=== PATIENT | female | born 1985 | race Caucasian/White ===

== ENCOUNTER 2017-08-05 16:33 | Emergency (ER) | payer OTHER ==
[2017-08-05 17:13] VITALS: BP 116/76
[2017-08-05 18:07] LABS: Bacteria,Urine 4+ /HPF (Negative); Bilirubin,Urine NEG (Negative); Blood,Urine LG (Negative); Color,Urine Straw (Yellow); Nitrite,Urine NEG (Negative); Protein,Urine <15 mg/dL mg/dL (Negative); Urobilinogen,Urine < 2.0 mg/dL (<2.0)
[2017-08-05 18:48] LABS: Basophils % (Auto) 0.2 % (0.0-1.8); Eosinophils % (Auto) 0.5 % (0.0-4.3); Hematocrit 39.6 % (30.3-42.9); Hemoglobin 13.3 gm/dl (10.1-14.3); Lymphocytes # (Auto) 2.4 K/mm3 (1.2-5.4); Lymphocytes % (Auto) 36.1 % (13.4-35.0); Mean Corpuscular HGB Conc 34 % (30-34); Mean Corpuscular Hemoglobin 30 pg (28-32); Mean Corpuscular Volume 90 fl (79-97); Monocytes # (Auto) 0.5 K/mm3 (0.0-0.8); Monocytes % (Auto) 7.5 % (0.0-7.3); Platelet Count 234 K/mm3 (140-440); Red Blood Count 4.39 M/mm3 (3.65-5.03)
--- NOTE | 2017-08-05 19:33 | Ultrasound Report ---
FINAL REPORT EXAM: US OB < = 14 WEEKS FETUS HISTORY: vaginal bleeding during . LMP 06/11/2017 with estimated age 7 weeks 4 days and EDC 03/20/2018 TECHNIQUE: Ultrasound of the pelvis using transabdominal and transvaginal imaging PRIORS: None. FINDINGS: Uterus: Uterus is enlarged in size and normal and homogeneous in echogenicity without focal fibroid formation. The uterus measures 10.2 x 4.8 x 8.0 cm in size. There is a single early viable intrauterine gestation noted. Intrauterine gestation: There is a single intrauterine gestation identified with both a pole and yolk sac. heart rate is monitored at 156 BPM using M-mode doppler. [place]-rump length measurement of 1.3 cm corresponds to estimated age 7 weeks 4 days with EDC 03/20/2018. There is a tiny adjacent subchorionic hemorrhage identified. Ovaries: Both ovaries appear normal in size and echogenicity with normal blood flow bilaterally. The right ovary measures 2.3 x 1.8 x 1.5 cm and the left ovary measures 2.7 x 2.3 x 1.5 cm in size. Other: There is no evidence for solid adnexal mass is seen. There is no free fluid in the cul-de-sac. IMPRESSION: Single intrauterine viable with an approximate age of 7 weeks 4 days.
--- NOTE | 2017-08-05 19:37 | Ultrasound Report ---
FINAL REPORT EXAM: US OB TRANSVAGINAL HISTORY: vaginal bleeding during . LMP 06/11/2017 with estimated age 7 weeks 4 days and EDC 03/20/2018 TECHNIQUE: Ultrasound of the pelvis using transabdominal and transvaginal imaging PRIORS: None. FINDINGS: Uterus: Uterus is enlarged in size and normal and homogeneous in echogenicity without focal fibroid formation. The uterus measures 10.2 x 4.8 x 8.0 cm in size. There is a single early viable intrauterine gestation noted. Intrauterine gestation: There is a single intrauterine gestation identified with both a pole and yolk sac. heart rate is monitored at 156 BPM using M-mode doppler. [place]-rump length measurement of 1.3 cm corresponds to estimated age 7 weeks 4 days with EDC 03/20/2018. There is a tiny adjacent subchorionic hemorrhage identified. Ovaries: Both ovaries appear normal in size and echogenicity with normal blood flow bilaterally. The right ovary measures 2.3 x 1.8 x 1.5 cm and the left ovary measures 2.7 x 2.3 x 1.5 cm in size. Other: There is no evidence for solid adnexal mass is seen. There is no free fluid in the cul-de-sac. IMPRESSION: Single intrauterine viable with an approximate age of 7 weeks 4 days. Tiny adjacent subchorionic hemorrhage.
--- NOTE | 2017-08-05 20:14 | Emergency Department Report ---
ED Female HPI - General Chief complaint: Vaginal Bleeding Stated complaint: 8 WKS PRG, BLEEDING Time Seen by Provider: 08/05/17 19:59 Source: patient, family Mode of arrival: Ambulatory Limitations: No Limitations - History of Present Illness Initial comments: Via conference interpreter service Patient here reports vaginal bleeding approximately 2 hours ago. She says she passed a clot the size of a grapefruit. She said she called her [facility]OX [facility]ER with a light cycle and is centered to emergency room. Denies any abdominal pain or back pain. Denies any nausea or vomiting. Denies any urinary burning frequency or urgency. Denies any fever or chills. Pain 0/10. Denies any medical problems MD Complaint: vaginal bleeding -: This evening Severity: moderate Are you Now?: Yes (7 weeks) Last Menstrual Period: 06/13/17 EDC: 03/20/18 Associated Symptoms: vaginal bleeding. denies: vaginal discharge, abdominal pain, nausea/vomiting, fever/chills, headaches, loss of appetite, dysuria, hematuria, rash, shortness of breath, syncope, weakness - Related Data Sexually active: Yes Previous Rx's Medication Instructions Recorded Last Taken Type Nitrofurantoin Monohyd/M-Cryst 100 mg PO Q12H 7 Days #14 capsule 08/05/17 Unknown Rx [Macrobid 100 mg Capsule] Allergies Allergy/AdvReac Type Severity Reaction Status Date / Time No Known Allergies Allergy Verified 08/05/17 17:09 ED Review of Systems ROS: Stated complaint: 8 WKS PRG, BLEEDING Other details as noted in HPI Comment: All other systems reviewed and negative Constitutional: no symptoms reported ENT: denies: throat pain Respiratory: no symptoms reported Cardiovascular: denies: chest pain, palpitations, dyspnea on exertion, edema, syncope, paroxysmal nocturnal dyspnea Gastrointestinal: abdominal pain. denies: nausea, vomiting, diarrhea, constipation, hematemesis, melena, hematochezia Genitourinary: denies: urgency, dysuria, frequency, hematuria, discharge, abnormal menses, dyspareunia Skin: denies: rash Neurological: denies: headache, numbness, abnormal gait ED Past Medical Hx - Past Medical History Previous Medical History?: No - Surgical History Past Surgical History?: No - Family History Family history: no significant - Social History Smoking Status: Never Smoker Substance Use Type: None - Medications Home Medications: Home Medications Medication Instructions Recorded Confirmed Last Taken Type Nitrofurantoin Monohyd/M-Cryst 100 mg PO Q12H 7 Days #14 capsule 08/05/17 Unknown Rx [Macrobid 100 mg Capsule] ED Physical Exam - General Limitations: No Limitations General appearance: alert, in no apparent distress - Head Head exam: Present: atraumatic, normocephalic, normal inspection - Eye Eye exam: Present: normal appearance, PERRL, EOMI Pupils: Present: normal accommodation - ENT ENT exam: Present: normal exam, normal orophraynx, mucous membranes moist - Neck Neck exam: Present: normal inspection, tenderness, full ROM. Absent: meningismus, lymphadenopathy, thyromegaly - Respiratory Respiratory exam: Present: normal lung sounds bilaterally. Absent: respiratory distress, chest wall tenderness - Cardiovascular Cardiovascular Exam: Present: regular rate, normal rhythm, normal heart sounds. Absent: systolic murmur, diastolic murmur - GI/Abdominal GI/Abdominal exam: Present: soft, normal bowel sounds. Absent: distended, tenderness, guarding, rebound, rigid, organomegaly, mass, bruit, pulsatile mass - External exam: Absent: normal external exam, erythema, swelling, lesions, lacerations, ecchymosis, bleeding Speculum exam: Present: vaginal bleeding. Absent: normal speculum exam, erythema, vaginal discharge, cervical discharge, foreign body, tissue, laceration Bi-manual exam: Absent: normal bi-manual exam, cervical motion tendernes, adnexal tenderness, adnexal mass, uterine enlargement, uterine tenderness - Expanded Exam Expanded Female exam: Absent: vaginal laceration, tissue present in vagina, herpetic lesions, vulvar erythema, vulvar tenderness, foreign body External exam: Present: normal Amniotic fluid: Present: none Speculum exam: Present: cervical OS closed, vaginal bleeding - Extremities Exam Extremities exam: Present: normal inspection, full ROM, normal capillary refill , other (no clubbing, cyanosis or edema. Positive pulses all extremities. No neurovascular compromise.). Absent: tenderness, pedal edema, joint swelling, calf tenderness - Back Exam Back exam: Present: normal inspection, full ROM. Absent: tenderness, CVA tenderness (R), CVA tenderness (L), muscle spasm, paraspinal tenderness, vertebral tenderness, rash noted - Neurological Exam Neurological exam: Present: alert, oriented X3, normal gait, reflexes normal. Absent: motor sensory deficit - Psychiatric Psychiatric exam: Present: normal affect, normal mood - Skin Skin exam: Present: warm, dry, intact, normal color. Absent: rash ED Course Vital Signs 08/05/17 17:09 Temperature 98.6 F Pulse Rate 86 Respiratory 18 Rate Blood Pressure 116/76 O2 Sat by Pulse 100 Oximetry - Reevaluation(s) Reevaluation #1: 08/05/17 21:06 Patient stable throughout ED course. ED Medical Decision Making - Lab Data Result diagrams: 08/05/17 17:20 Lab Results 08/05/17 08/05/17 08/05/17 Range/Units 17:20 17:20 17:20 WBC 6.7 (4.5-11.0) K/mm3 RBC 4.39 (3.65-5.03) M/mm3 Hgb 13.3 (10.1-14.3) gm/dl Hct 39.6 (30.3-42.9) % MCV 90 (79-97) fl MCH 30 (28-32) pg MCHC 34 (30-34) % RDW 13.0 L (13.2-15.2) % Plt Count 234 (140-440) K/mm3 Lymph % (Auto) 36.1 H (13.4-35.0) % [place] % (Auto) 7.5 H (0.0-7.3) % Eos % (Auto) 0.5 (0.0-4.3) % Baso % (Auto) 0.2 (0.0-1.8) % Lymph # 2.4 (1.2-5.4) K/mm3 [place] # 0.5 (0.0-0.8) K/mm3 Eos # 0.0 (0.0-0.4) K/mm3 Baso # 0.0 (0.0-0.1) K/mm3 Seg Neutrophils % 55.7 (40.0-70.0) % Seg Neutrophils # 3.7 (1.8-7.7) K/mm3 HCG, Qual Positive (Negative) HCG, Quant 68216 H (0-4) mIU/mL Urine Color (Yellow) Urine Turbidity (Clear) Urine pH (5.0-7.0) Ur Specific [place] (1.003-1.030) Urine Protein (Negative) mg/dL Urine Glucose (UA) (Negative) mg/dL Urine Ketones (Negative) mg/dL Urine Blood (Negative) Urine Nitrite (Negative) Ur Reducing Substances Urine Bilirubin (Negative) Urine Ictotest Urine Urobilinogen (<2.0) mg/dL Ur Leukocyte Esterase (Negative) Urine WBC (Auto) (0.0-6.0) /HPF Urine RBC (Auto) (0.0-6.0) /HPF U Epithel Cells (Auto) (0-13.0) /HPF Urine Bacteria (Auto) (Negative) /HPF Blood Type Antibody Screen 08/05/17 08/05/17 Range/Units 17:31 17:45 WBC (4.5-11.0) K/mm3 RBC (3.65-5.03) M/mm3 Hgb (10.1-14.3) gm/dl Hct (30.3-42.9) % MCV (79-97) fl MCH (28-32) pg MCHC (30-34) % RDW (13.2-15.2) % Plt Count (140-440) K/mm3 Lymph % (Auto) (13.4-35.0) % [place] % (Auto) (0.0-7.3) % Eos % (Auto) (0.0-4.3) % Baso % (Auto) (0.0-1.8) % Lymph # (1.2-5.4) K/mm3 [place] # (0.0-0.8) K/mm3 Eos # (0.0-0.4) K/mm3 Baso # (0.0-0.1) K/mm3 Seg Neutrophils % (40.0-70.0) % Seg Neutrophils # (1.8-7.7) K/mm3 HCG, Qual (Negative) HCG, Quant (0-4) mIU/mL Urine Color Straw (Yellow) Urine Turbidity Slightly-cloudy (Clear) Urine pH 7.0 (5.0-7.0) Ur Specific [place] 1.004 (1.003-1.030) Urine Protein <15 mg/dl (Negative) mg/dL Urine Glucose (UA) Neg (Negative) mg/dL Urine Ketones Neg (Negative) mg/dL Urine Blood Lg (Negative) Urine Nitrite Neg (Negative) Ur Reducing Substances Not Reportable Urine Bilirubin Neg (Negative) Urine Ictotest Not Reportable Urine Urobilinogen < 2.0 (<2.0) mg/dL Ur Leukocyte Esterase Mod (Negative) Urine WBC (Auto) 20.0 H (0.0-6.0) /HPF Urine RBC (Auto) 3.0 (0.0-6.0) /HPF U Epithel Cells (Auto) 3.0 (0-13.0) /HPF Urine Bacteria (Auto) 4+ (Negative) /HPF Blood Type A POSITIVE Antibody Screen Negative Urine culture sent - Radiology Data Radiology results: report reviewed Ultrasound OB transvaginal and abdomen and pelvis with single intrauterine viable regnancy with an approximate age of 7 weeks and 4 days. Tiny adjacent subchorionic hemorrhage. There no evidence for solid adnexal mass. No free fluid in the cul-de-sac. Both ovaries are normal with good blood flow. Estimated date of delivery is 03/20/2018. heartbeat is 156 bpm. - Medical Decision Making ED course: Patient sent to the emergency room by [facility] for evaluation of vaginal bleeding and . Patient has care and she had multiple testing done at [facility] office therefore no need for STD test and wet prep. CBC and chemistries stable, urinalysis with positive bladder infection, urine culture sent and pending. Ultrasound shows patient has a viable intrauterine at 7 weeks and 4 days. Patient also has subchorionic hemorrhage. He is referred to radiology section for detail and ultrasound report and referred to lab section for details on laboratory. Via conference interpreter ultrasound, Labs and diagnosis with follow-up discussed the patient and her . Patient was on the senna discharge instructions. Patient to call her BOX LO[facility]ER on 08/08/2017 and to also keep her appointment for Tuesday at her [facility]. Patient discharged home with her with prescription for Macrobid to cover UTI and I told her she is to increase her fluid intake and bedrest until further instructions from [facility]. Critical care attestation.: If time is entered above; I have spent that time in minutes in the direct care of this critically ill patient, excluding procedure time. ED Disposition Clinical Impression: Acute cystitis during in first trimester, Threatened miscarriage in early , Vaginal bleeding Disposition: DC-01 TO HOME OR SELFCARE Is pt being admited?: No Does the pt Need Aspirin: No Condition: Stable Instructions: Threatened Miscarriage (ED), Urinary Tract Infection in Women (ED ) Additional Instructions: Please follow up with the BOX LO[facility]ER on 08/08/2017 Please increase her fluid intake Bedrest until further instruction from your [facility] doctor You have a urinary tract infection and will need to take Macrobid as ordered. If you develop increasing bleeding , please return to the emergency room [facility] Prescriptions: Nitrofurantoin Monohyd/M-Cryst [Macrobid 100 mg Capsule] 100 mg PO Q12H 7 Days # 14 capsule Referrals: [facility] [Referring] - 3-5 Days [facility] [Provider Group] - 08/08/17 Forms: Accompanied Note Print Language: [place]
== END 2017-08-05 21:28 | disposition home or self-care (01) ==
LOC: ED 16:33
DX: O20.0 Threatened abortion (principal); O23.11 Infections of bladder in pregnancy, first trimester; Z3A.01 Less than 8 weeks gestation of pregnancy
CPT/HCPCS: 36415; 76801; 76817; 81001; 81025; 84702; 84703; 85025; 86850; 86900; 86901; 87086

== ENCOUNTER 2017-10-03 22:38 | Emergency (ER) | payer OTHER ==
[2017-10-03 23:49] VITALS: BP 108/76
[2017-10-04 00:14] LABS: Basophils % (Auto) 0.3 % (0.0-1.8); Eosinophils # (Auto) 0.1 K/mm3 (0.0-0.4); Eosinophils % (Auto) 0.8 % (0.0-4.3); Hematocrit 35.7 % (30.3-42.9); Hemoglobin 11.9 gm/dl (10.1-14.3); Lymphocytes # (Auto) 2.8 K/mm3 (1.2-5.4); Lymphocytes % (Auto) 32.1 % (13.4-35.0); Mean Corpuscular HGB Conc 34 % (30-34); Mean Corpuscular Hemoglobin 31 pg (28-32); Mean Corpuscular Volume 91 fl (79-97); Monocytes # (Auto) 0.6 K/mm3 (0.0-0.8); Monocytes % (Auto) 7.3 % (0.0-7.3); Platelet Count 223 K/mm3 (140-440); Red Cell Distribution Width 13.5 % (13.2-15.2)
[2017-10-04 00:26] LABS: BUN/Creatinine Ratio 20; Blood Urea Nitrogen 8 mg/dL (7-17); Calcium 9.6 mg/dL (8.4-10.2); Hemolysis Index 0
--- NOTE | 2017-10-04 02:43 | Ultrasound Report ---
FINAL REPORT EXAM: US OB TRANSVAGINAL HISTORY: 16 weeks, bleeding TECHNIQUE: Transvaginal imaging was obtained of the pelvis along with Doppler interrogation of the uterus. FINDINGS: There is a single viable intrauterine with an estimated sonographic age of 16 weeks 6 days based on sonographic criteria. The heart is 171 BPM. The position is transverse with the head along the maternal left side. The placenta is grade 0 and is anterior in position. There is a complete placenta previa at this time. The cervical length is 3.4 cm. The amniotic fluid volume is normal. There are no gross anomalies involving the stomach, bladder, diaphragm, heart, three-vessel cord, choroid plexus, cisterna magna, cerebellum or lateral ventricles. The spine is not adequate seen for evaluation. IMPRESSION: Single viable IUP, 16 weeks 6 days. The heart rate is 171 bpm. Complete placenta previa as described. Follow-up study recommended.
--- NOTE | 2017-10-04 02:55 | Ultrasound Report ---
FINAL REPORT EXAM: US OB > = 14 WEEKS FETUS HISTORY: 16 weeks, bleeding TECHNIQUE: Transabdominal imaging was obtained the pelvis including Doppler interrogation of the fetus. FINDINGS: There is a single viable intrauterine with an estimated sonographic age of 16 weeks 6 days based on sonographic criteria. The position is transverse with head along the maternal left side. The heart rate is 171 BPM. The cervical length is 3.4 cm. The placenta is anterior in position and is grade 0. There is a complete placenta previa. The amniotic fluid volume appears normal. There are no gross anomalies involving the stomach, bladder, diaphragm, heart, three-vessel cord, choroid plexus, cisterna magna, cerebellum cielo lateral ventricle. The spine is not adequately seen for evaluation. IMPRESSION: Single viable IUP, 16 weeks 6 days. The heart rate is 171 BPM. Complete placenta previa.
[2017-10-04 03:25] LABS: Amorphous Crystals,Urine Few; Bacteria,Urine 2+ /HPF (Negative); Bilirubin,Urine NEG (Negative); Blood,Urine MOD (Negative); Color,Urine Straw (Yellow); Protein,Urine <15 mg/dL mg/dL (Negative); Urobilinogen,Urine < 2.0 mg/dL (<2.0)
== END 2017-10-04 03:40 | disposition left against medical advice (07) ==
LOC: ED 22:38
DX: N93.9 Abnormal uterine and vaginal bleeding, unspecified (principal); Z53.21 Procedure and treatment not carried out due to patient leaving prior to being seen by health care provider
CPT/HCPCS: 36415; 76805; 76817; 80048; 81001; 84702; 85025; 86850; 86900; 86901